=== PATIENT | female | born 1990 | race Caucasian/White ===

== ENCOUNTER 2020-10-01 18:59 | Inpatient (IN) | payer BC ==
--- NOTE | 2020-10-01 19:41 | EDM.PDOC ---
ED HPI GENERAL MEDICAL PROBLEM - General Chief Complaint: Lower Extremity Injury/Pain Stated Complaint: BLOOD CLOT IN LEFT LEG Time Seen by Provider: 10/01/20 19:15 Source of Information: Reports: Patient History Limitations: Reports: No Limitations - History of Present Illness INITIAL COMMENTS - FREE TEXT/NARRATIVE: ED with swelling left lower leg. No injury. Was seen at [facility] late afternoon, sent here to be seen in ED and have US. No records sent by facility. Patient reports negative hx or family hx for clotting issues. On OCP.. Hx PCOS. Smoker. Works from home sitting approximately 9.5 hours perday. Left Lower Leg Pain Score (Numeric/FACES): 10 - Related Data Allergies Allergy/AdvReac Type Severity Reaction Status Date / Time No Known Allergies Allergy Verified 10/01/20 19:16 Home Meds: Home Meds Ethinyl Estradiol/Drospirenone [Yudy 28 Tablet] 1 tab PO DAILY 10/02/20 [History] metFORMIN [Glucophage] 500 mg PO BIDMEALS 10/02/20 [History] Past Medical History - Past Health History Medical/Surgical History: Denies Medical/Surgical History Social & Family History - Tobacco Use Tobacco Use Status *Q: Current Every Day Tobacco User Years of Tobacco use: 10 Packs/Tins Daily: 1 Used Tobacco, but Quit: No - Caffeine Use Caffeine Use: Reports: Coffee, Energy Drinks, Soda, Tea - Recreational Drug Use Recreational Drug Use: No Review of Systems - Review of Systems Review Of Systems: Comprehensive ROS is negative, except as noted in HPI. ED EXAM, GENERAL - Physical Exam Exam: See Below Exam Limited By: No Limitations General Appearance: Alert, Mild Distress Eye Exam: Bilateral Eye: PERRL Ears: Normal External Exam Nose: Normal Inspection Throat/Mouth: Normal Voice Head: Atraumatic, Normocephalic Neck: Normal Inspection Respiratory/Chest: No Respiratory Distress, Lungs Clear, Normal Breath Sounds Cardiovascular: Regular Rate, Rhythm, No Murmur, No Rub GI/Abdominal: Normal Bowel Sounds Back Exam: Normal Inspection Extremities: Rbooke's Sign (left), Leg Pain (left posterior upper calf pain with swelling), Other (right ankle18.5 cm right calf 42cm left ankle20.5 cm, left calf 44cm). No: Increased Warmth, Mottled, Pallor, Redness Neurological: Alert, Oriented, Normal Cognition Psychiatric: Normal Affect, Normal Mood Skin Exam: Warm, Dry, Intact, Normal Color Course - Vital Signs Last Recorded V/S: Last Vital Signs Temp 98.5 F 10/01/20 22:46 Pulse 101 H 10/01/20 22:46 Resp 16 10/01/20 22:46 BP 129/63 10/01/20 22:46 Pulse Ox 99 10/01/20 22:46 - Orders/Labs/Meds Orders: Medication Orders Acetaminophen (Acetaminophen 325 Mg Tab) 650 mg PO Q4H PRN PRN Reason: Pain (Mild 1-3)/fever Apixaban (Apixaban 5 Mg Tab) 10 mg PO BID MEHUL Last Admin: 10/01/20 23:16 Dose: 10 mg Documented by: ERIC Miscellaneous Information (Remove Nicotine 14 Mg Patch) 1 ea TRDERM DAILY [facility] Nicotine (Nicotine 14 Mg/24 Hr Patch) 14 mg TRDERM DAILY [facility] Labs: Laboratory Tests 10/01/20 10/01/20 10/01/20 Range/Units 19:30 19:30 19:30 WBC 11.0 H (5.0-10.0) 10^3/uL RBC 4.01 L (4.2-5.4) 10^6/uL Hgb 12.0 (12.0-16.0) g/dL Hct 35.9 L (37.0-47.0) % MCV 89.5 (80-100) fL MCH 29.9 (27.0-34.0) pg MCHC 33.4 (33.0-35.0) g/dL Plt Count 172 (150-450) 10^3/uL Neut % (Auto) 67.5 (42.2-75.2) % Lymph % (Auto) 23.6 (20.5-50.1) % Branch % (Auto) 4.7 (2-8) % Eos % (Auto) 3.9 H (1.0-3.0) % Baso % (Auto) 0.3 (0.0-1.0) % PT 9.8 (9.0-12.0) SEC INR 1.0 (0.9-1.2) D-Dimer, Quantitative 2890 H (0-400) ng/mL Sodium 138 (136-145) mmol/L Potassium 3.9 (3.5-5.1) mmol/L Chloride 103 (98-107) mmol/L Carbon Dioxide 24 (21-32) mmol/L Anion Gap 14.9 H (7-13) mEq/L BUN 9 (7-18) mg/dL Creatinine 0.87 (0.55-1.02) mg/dL Est Cr Clr Drug Dosing 83.13 mL/min Estimated GFR (MDRD) > 60 BUN/Creatinine Ratio 10.3 (No establ ref range) Glucose 99 (70-99) mg/dL Calcium 8.7 (8.5-10.1) mg/dL Total Bilirubin 0.2 (0.2-1.0) mg/dL AST 12 L (15-37) U/L ALT 24 (14-59) U/L Alkaline Phosphatase 82 (46-116) U/L Total Protein 7.5 (6.4-8.2) g/dL Albumin 2.9 L (3.4-5.0) g/dL Globulin 4.6 Albumin/Globulin Ratio 0.63 HCG, Qual Negative SARS-CoV-2 RNA (FRIDA) (NEGATIVE) 10/01/20 Range/Units 20:20 WBC (5.0-10.0) 10^3/uL RBC (4.2-5.4) 10^6/uL Hgb (12.0-16.0) g/dL Hct (37.0-47.0) % MCV (80-100) fL MCH (27.0-34.0) pg MCHC (33.0-35.0) g/dL Plt Count (150-450) 10^3/uL Neut % (Auto) (42.2-75.2) % Lymph % (Auto) (20.5-50.1) % Branch % (Auto) (2-8) % Eos % (Auto) (1.0-3.0) % Baso % (Auto) (0.0-1.0) % PT (9.0-12.0) SEC INR (0.9-1.2) D-Dimer, Quantitative (0-400) ng/mL Sodium (136-145) mmol/L Potassium (3.5-5.1) mmol/L Chloride (98-107) mmol/L Carbon Dioxide (21-32) mmol/L Anion Gap (7-13) mEq/L BUN (7-18) mg/dL Creatinine (0.55-1.02) mg/dL Est Cr Clr Drug Dosing mL/min Estimated GFR (MDRD) BUN/Creatinine Ratio (No establ ref range) Glucose (70-99) mg/dL Calcium (8.5-10.1) mg/dL Total Bilirubin (0.2-1.0) mg/dL AST (15-37) U/L ALT (14-59) U/L Alkaline Phosphatase (46-116) U/L Total Protein (6.4-8.2) g/dL Albumin (3.4-5.0) g/dL Globulin Albumin/Globulin Ratio HCG, Qual SARS-CoV-2 RNA (FRIDA) Negative (NEGATIVE) Meds: Medications Generic Name Dose Route Start Last Admin Trade Name Freq PRN Reason Stop Dose Admin Acetaminophen 650 mg 10/01/20 22:46 Acetaminophen 325 Mg Tab PO Q4H PRN Pain (Mild 1-3)/fever Apixaban 10 mg 10/01/20 23:00 10/01/20 23:16 Apixaban 5 Mg Tab PO 10 mg BID MEHUL Administration Miscellaneous Information 1 ea 10/03/20 09:00 Remove Nicotine 14 Mg Patch TRDERM DAILY [facility] Nicotine 14 mg 10/02/20 09:00 Nicotine 14 Mg/24 Hr Patch TRDERM DAILY MEH[facility] Discontinued Medications Generic Name Dose Route Start Last Admin Trade Name Freq PRN Reason Stop Dose Admin Iopamidol 100 ml 10/01/20 20:12 10/01/20 20:52 Iopamidol 755 Mg/Ml 100 Ml Bottle IVPUSH 10/01/20 20:13 71 ml ONETIME ONE Administration - Re-Assessments/Exams Free Text/Narrative Re-Assessment/Exam: 10/02/20 02:[address] Carlos , will admit acute care Departure - Departure Time of Disposition: 22:00 Disposition: Admitted As Inpatient 68 Condition: Good Clinical Impression: DVT of lower extremity (deep venous thrombosis) Qualifiers: Affected thrombotic vein of extremity: femoral Chronicity: acute Laterality: left Qualified Code(s): I82.412 - Acute embolism and thrombosis of left femoral vein - Discharge Information *PRESCRIPTION DRUG MONITORING PROGRAM REVIEWED*: No *COPY OF PRESCRIPTION DRUG MONITORING REPORT IN PATIENT MILVIA: No Sepsis Event Note (ED) - Evaluation Sepsis Screening Result: No Definite Risk - Focused Exam Vital Signs: Vital Signs Temp Pulse Resp BP Pulse Ox 10/01/20 19:12 98.7 F 109 H 18 140/90 100
[2020-10-01 19:56] LABS: ANION GAP 14.9 mEq/L (7-13); CHLORIDE,CL 103 mmol/L (98-107); SODIUM,NA 138 mmol/L (136-145)
[2020-10-01] MEDS ORDERED: Iopamidol 755 Mg/ML 100 ML Bottle IVPUSH ONE (20:12)
--- NOTE | 2020-10-01 20:43 | US ---
PROCEDURE INFORMATION: Exam: US Duplex Left Lower Extremity Veins, Limited Exam date and time: 10/01/2020 7:33 PM Age: 30 years old Clinical indication: Pain; Leg, lower; Left; Additional info: Left calf pain swelling TECHNIQUE: Imaging protocol: Real-time Duplex ultrasound of the Left Lower Extremity with 2-D lange scale, color Doppler flow and spectral waveform analysis with image documentation. Limited exam focused on the left lower extremity veins. Total images: 30 COMPARISON: No relevant prior studies available. FINDINGS: Left deep veins: There is long segment deep venous thrombosis extending from the visualized portion of the left common femoral vein throughout the left superficial femoral vein, popliteal vein and into the below the knee deep veins. Abnormal spectral waveforms. Left superficial veins: Unremarkable. Saphenofemoral junction is patent without thrombus. Soft tissues: Unremarkable. IMPRESSION: Long segment DVT throughout the left lower extremity deep veins. Thrombus extends from the visualized portion of the left common femoral vein into the below the knee calf veins.
--- NOTE | 2020-10-01 21:13 | CT ---
PROCEDURE INFORMATION: Exam: CT Chest With Contrast; Diagnostic Exam date and time: 10/01/2020 8:37 PM Age: 30 years old Clinical indication: Other: Dvt, d-dimer 2890; Additional info: Dvt, ddimer 2800 TECHNIQUE: Imaging protocol: Diagnostic computed tomography of the chest with contrast. Total images: 371 Radiation optimization: All CT scans at this facility use at least one of these dose optimization techniques: automated exposure control; mA and/or kV adjustment per patient size (includes targeted exams where dose is matched to clinical indication); or iterative reconstruction. Contrast material: ISOVUE 370; Contrast volume: 71 ml; Contrast route: INTRAVENOUS (IV); COMPARISON: No relevant prior studies available. FINDINGS: Lungs: Patchy nodular opacity at the lateral right lung base probably inflammatory/atelectatic. Pleural spaces: Unremarkable. No pneumothorax. No pleural effusion. Heart: No definite evidence for right heart strain with RV to LV ratio less than 1. Pulmonary arteries: Although the examination is not tailored for the pulmonary arteries. There is suggestion of possible small thrombus within a right segmental lower lobe pulmonary branch as seen best on image 51-series 4. Possible tiny thrombus within a left upper lobe branch. Aorta: Unremarkable. No aortic aneurysm. Lymph nodes: Unremarkable. No enlarged lymph nodes. Bones/joints: Unremarkable. No acute fracture. Soft tissues: Unremarkable. IMPRESSION: 1. Although this examination was not tailored for the pulmonary arteries, there is suggestion of small thrombus/acute pulmonary embolus within a right lower lobe segmental arterial branch. Possible thrombus left upper lobe branch. No right heart strain. May consider dedicated CTA of chest to better characterize the pulmonary arteries. 2. See above for other details.
[2020-10-01] MEDS ORDERED: Acetaminophen 325 MG Tab PO PRN (22:46)
--- NOTE | 2020-10-01 23:09 | PCM.HP ---
H&P History of Present Illness - General Date of Service: 10/01/20 Admit Problem/Dx: Admission Diagnosis/Problem Admission Diagnosis/Problem DVT, Deep venous thrombosis of lower extremity - History of Present Illness Initial Comments - Free Text/Narative: 30F w/ pmh SLE, PCOS, on oral contraceptives for related hirsutism, smoker p/w LLE pain and swelling. 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 She noticed pain and swelling in left calf one day ago. She was seen in clinic and directed to the ED for concern for DVT. ER evaluation reveals LLE DVT up to the common femoral vein and CT chest reveals possible two small PEs in RLL and TOI. Pt denies any cardiopulmonary symptoms. Denies any bleeding. Denies family hx clotting disorders or sudden . Left Lower Leg Pain Score (Numeric/FACES): 10 - Related Data Allergies/Adverse Reactions: Allergies Allergy/AdvReac Type Severity Reaction Status Date / Time No Known Allergies Allergy Verified 10/01/20 19:16 Home Medications: Home Meds . [Unable to Verify Home Med List] 10/01/20 [History] Past Medical History - Past Health History Medical/Surgical History: Denies Medical/Surgical History Social & Family History - Tobacco Use Tobacco Use Status *Q: Current Every Day Tobacco User Years of Tobacco use: 10 Packs/Tins Daily: 1 Used Tobacco, but Quit: No - Caffeine Use Caffeine Use: Reports: Coffee, Energy Drinks, Soda, Tea - Recreational Drug Use Recreational Drug Use: No H&P Review of Systems - Review of Systems: Review Of Systems: See Below General: Denies: Fever, Chills, Malaise, Weakness HEENT: Denies: Headaches Pulmonary: Denies: Shortness of Breath, Pleuritic Chest Pain, Cough, Hemoptysis Cardiovascular: Reports: Edema (LLE). Denies: Chest Pain, Palpitations Gastrointestinal: Denies: Abdominal Pain Genitourinary: Denies: Dysuria Musculoskeletal: Reports: Joint Swelling (on/off many joints particularly hands and knees) Skin: Denies: Jaundice Psychiatric: Denies: Confusion, Depression, Anxiety Neurological: Denies: Dizziness Hematologic/Lymphatic: Reports: Easy Bruising. Denies: Easy Bleeding Exam - Exam Exam: See Below - Vital Signs Vital Signs: Last Vital Signs Temp 98.7 F 10/01/20 19:12 Pulse 109 H 10/01/20 19:12 Resp 18 10/01/20 19:12 BP 140/90 10/01/20 19:12 Pulse Ox 100 10/01/20 19:12 Weight: 194 lb 12.8 oz - Exam Quality Assessment: No: Supplemental Oxygen General: Alert, Oriented HEENT: Conjunctiva Clear Neck: Supple Lungs: Clear to Auscultation, Normal Respiratory Effort Cardiovascular: Regular Rate, Regular Rhythm GI/Abdominal Exam: Normal Bowel Sounds, Soft, Non-Tender, No Distention Back Exam: Normal Inspection Extremities: Other (LLE diffusely swollen, mildly TTP left calf, RUE in biceps noticably bigger diameter than LUE but no TTP or erythema) Skin: Warm, Dry, Intact Neurological: Cranial Nerves Intact Neuro Extensive - Mental Status: Alert, Oriented x3 Neuro Extensive - Motor, Sensory, Reflexes: No: Tremor Psychiatric: Alert, Normal Affect, Normal Mood - Patient Data Lab Results Last 24 hrs: Laboratory Results - last 24 hr 10/01/20 10/01/20 10/01/20 Range/Units 19:30 19:30 19:30 WBC 11.0 H (5.0-10.0) 10^3/uL RBC 4.01 L (4.2-5.4) 10^6/uL Hgb 12.0 (12.0-16.0) g/dL Hct 35.9 L (37.0-47.0) % MCV 89.5 (80-100) fL MCH 29.9 (27.0-34.0) pg MCHC 33.4 (33.0-35.0) g/dL Plt Count 172 (150-450) 10^3/uL Neut % (Auto) 67.5 (42.2-75.2) % Lymph % (Auto) 23.6 (20.5-50.1) % [place]ke % (Auto) 4.7 (2-8) % Eos % (Auto) 3.9 H (1.0-3.0) % Baso % (Auto) 0.3 (0.0-1.0) % PT 9.8 (9.0-12.0) SEC INR 1.0 (0.9-1.2) D-Dimer, Quantitative 2890 H (0-400) ng/mL Sodium 138 (136-145) mmol/L Potassium 3.9 (3.5-5.1) mmol/L Chloride 103 (98-107) mmol/L Carbon Dioxide 24 (21-32) mmol/L Anion Gap 14.9 H (7-13) mEq/L BUN 9 (7-18) mg/dL Creatinine 0.87 (0.55-1.02) mg/dL Est Cr Clr Drug Dosing 83.13 mL/min Estimated GFR (MDRD) > 60 BUN/Creatinine Ratio 10.3 (No establ ref range) Glucose 99 (70-99) mg/dL Calcium 8.7 (8.5-10.1) mg/dL Total Bilirubin 0.2 (0.2-1.0) mg/dL AST 12 L (15-37) U/L ALT 24 (14-59) U/L Alkaline Phosphatase 82 (46-116) U/L Total Protein 7.5 (6.4-8.2) g/dL Albumin 2.9 L (3.4-5.0) g/dL Globulin 4.6 Albumin/Globulin Ratio 0.63 HCG, Qual Negative SARS-CoV-2 RNA (FRIDA) (NEGATIVE) 10/01/20 Range/Units 20:20 WBC (5.0-10.0) 10^3/uL RBC (4.2-5.4) 10^6/uL Hgb (12.0-16.0) g/dL Hct (37.0-47.0) % MCV (80-100) fL MCH (27.0-34.0) pg MCHC (33.0-35.0) g/dL Plt Count (150-450) 10^3/uL Neut % (Auto) (42.2-75.2) % Lymph % (Auto) (20.5-50.1) % [place]ke % (Auto) (2-8) % Eos % (Auto) (1.0-3.0) % Baso % (Auto) (0.0-1.0) % PT (9.0-12.0) SEC INR (0.9-1.2) D-Dimer, Quantitative (0-400) ng/mL Sodium (136-145) mmol/L Potassium (3.5-5.1) mmol/L Chloride (98-107) mmol/L Carbon Dioxide (21-32) mmol/L Anion Gap (7-13) mEq/L BUN (7-18) mg/dL Creatinine (0.55-1.02) mg/dL Est Cr Clr Drug Dosing mL/min Estimated GFR (MDRD) BUN/Creatinine Ratio (No establ ref range) Glucose (70-99) mg/dL Calcium (8.5-10.1) mg/dL Total Bilirubin (0.2-1.0) mg/dL AST (15-37) U/L ALT (14-59) U/L Alkaline Phosphatase (46-116) U/L Total Protein (6.4-8.2) g/dL Albumin (3.4-5.0) g/dL Globulin Albumin/Globulin Ratio HCG, Qual SARS-CoV-2 RNA (FRIDA) Negative (NEGATIVE) Result Diagrams: 10/01/20 19:30 10/01/20 19:30 Problem List Initiated/Reviewed/Updated: Yes Orders Last 24hrs: Active Orders 24 hr Category Date Time Status Admission Diagnosis [ADT] Stat ADT 10/01/20 21:16 Ordered Admission Status [Patient Status] [ADT] Routine ADT 10/01/20 21:16 Active Patient Status [ADT] Routine ADT 10/01/20 22:46 Ordered Cardiac Monitoring [RC] 08,20 Care 10/01/20 21:16 Active Cardiac Monitoring [RC] CONTINUOUS Care 10/01/20 22:47 Ordered Communication Order [RC] ROUTINE Care 10/01/20 23:03 Ordered Oxygen Therapy [RC] PRN Care 10/01/20 22:46 Ordered Up ad Nika [RC] ASDIRECTED Care 10/01/20 22:46 Ordered VTE/DVT Education [RC] PER UNIT ROUTINE Care 10/01/20 22:46 Ordered Vital Signs [RC] Q4H Care 10/01/20 22:46 Ordered Regular Diet [DIET] Diet 10/02/20 Breakfast Ordered Echo Comp wo Cont [US] Routine Exams 10/01/20 22:46 Ordered Venous Doppler Upr Ext Rt [US] Routine Exams 10/01/20 22:46 Ordered ANTICARDIOLIPIN AB, IGG, QN [REF] AM Lab 10/02/20 05:11 Ordered ANTITHROMBIN ACTIVITY [REF] AM Lab 10/02/20 05:11 Ordered LUPUS ANTICOAGULANT PANEL [REF] AM Lab 10/02/20 05:11 Ordered MISC TEST AM Lab 10/02/20 05:11 Ordered MISC TEST Routine Lab 10/02/20 05:30 Ordered MISC TEST Routine Lab 10/02/20 05:31 Ordered PROTEIN C-FUNCTIONAL [REF] AM Lab 10/02/20 05:11 Ordered PROTEIN S-FUNCTIONAL [REF] AM Lab 10/02/20 05:11 Ordered Acetaminophen [TylenoL] Med 10/01/20 22:46 Ordered 650 mg PO Q4H PRN Apixaban [Eliquis] Med 10/01/20 23:00 Ordered 10 mg PO BID Nicotine [Habitrol] Med 10/02/20 09:00 Ordered 14 mg TRDERM DAILY Remove Patch Med 10/03/20 09:00 Active 1 ea TRDERM DAILY Resuscitation Status Routine Resus Stat 10/01/20 22:46 Ordered Medication Orders Acetaminophen (Acetaminophen 325 Mg Tab) 650 mg PO Q4H PRN PRN Reason: Pain (Mild 1-3)/fever Apixaban (Apixaban 5 Mg Tab) 10 mg PO BID MEHUL Miscellaneous Information (Remove Nicotine 14 Mg Patch) 1 ea TRDERM DAILY [facility] Nicotine (Nicotine 14 Mg/24 Hr Patch) 14 mg TRDERM DAILY [facility] Assessment/Plan Comment:: #acute LLE DVT / acute PE - appears provoked by sedentary job, smoking and OCP use - given young age will test for hypercoagulable disorders including APS and anticardiolipin given SLE hx - check RUE doppler given asymetry and echo - risks/benefits/alternatives of anticoagulation discussed - med choices discussed >>> pt chose eliquis #SLE - self d/c all meds #PCOS - hold OCPs PPX - on a/c
[2020-10-01] MEDS: Apixaban 5 MG Tab PO SCH (23:16)
[2020-10-02] MEDS ORDERED: Nicotine 14 MG/24 Hr Patch TRDERM SCH (09:00)
[2020-10-02] MEDS: Apixaban 5 MG Tab PO SCH (09:05)
--- NOTE | 2020-10-02 13:18 | US ---
EXAMINATION: Venous Doppler Upr Ext Rt SEX: Female AGE: 30 years CLINICAL HISTORY: 30-year-old hospitalized female with clinical history left lower extremity DVT and pulmonary embolism (D dimer 2890) who presents now with right arm swelling. Interpretation: Negative exam. No current sonographic evidence deep vein thrombosis right upper extremity. Specifically, no sign of intraluminal echogenic thrombus identified in the right subclavian, right axillary, right brachial and basilic veins. Cephalic vein also patent. No subcutaneous edema or hematoma.
--- NOTE | 2020-10-02 18:57 | PCM.DCSUM1 ---
Discharge Summary - Hospital Course Free Text/Narrative:: 30F w/ pmh SLE, PCOS, on oral contraceptives for related hirsutism, smoker p/w LLE pain and swelling. 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 She noticed pain and swelling in left calf one day ago. She was seen in clinic and directed to the ED for concern for DVT. ER evaluation reveals LLE DVT up to the common femoral vein and CT chest reveals possible two small PEs in RLL and TOI. Pt denies any cardiopulmonary symptoms. Denies any bleeding. Denies family hx clotting disorders or sudden . Risks, benefits and alternatives to anticoagulation was discussed. PT chose to start on eliquis. Hypercoagulable work up was sent due to her young age. She was counseled on smoking cessation and stopping OCPs. - Discharge Data Discharge Date: 10/02/20 Discharge Disposition: Home, Self-Care 01 Condition: Good - Referral to Home Health Primary Care Physician: PCP None - Discharge Plan *PRESCRIPTION DRUG MONITORING PROGRAM REVIEWED*: No *COPY OF PRESCRIPTION DRUG MONITORING REPORT IN PATIENT MILVIA: No Prescriptions/Med Rec: Apixaban [Eliquis] 10 mg PO BID #72 tablet Home Medications: Home Meds Apixaban [Eliquis] 10 mg PO BID #72 tablet 10/02/20 [Rx] metFORMIN [Glucophage] 500 mg PO BIDMEALS 10/02/20 [History] Patient Handouts: Apixaban oral tablets, Venous Thromboembolism Prevention Referrals: Lesly Reese [facility] [Ordering Only Provider] - - Discharge Summary/Plan Comment DC Time >30 min.: Yes (35 min) - Patient Data Vitals - Most Recent: Last Vital Signs Temp 98.3 F 10/02/20 11:36 Pulse 75 10/02/20 11:36 Resp 16 10/02/20 11:36 BP 110/56 L 10/02/20 11:36 Pulse Ox 98 10/02/20 11:36 Weight - Most Recent: 194 lb 3.2 oz I&O - Last 24 hours: Intake & Output 10/02/20 10/02/20 10/02/20 06:59 14:59 22:59 Intake Total 680 Balance 680 Lab Results - Last 24 hrs: Laboratory Results - last 24 hr 05/19/21 05/19/21 05/19/21 Range/Units 19:30 19:30 19:30 WBC 11.0 H (5.0-10.0) 10^3/uL RBC 4.01 L (4.2-5.4) 10^6/uL Hgb 12.0 (12.0-16.0) g/dL Hct 35.9 L (37.0-47.0) % MCV 89.5 (80-100) fL MCH 29.9 (27.0-34.0) pg MCHC 33.4 (33.0-35.0) g/dL Plt Count 172 (150-450) 10^3/uL Neut % (Auto) 67.5 (42.2-75.2) % Lymph % (Auto) 23.6 (20.5-50.1) % [place] % (Auto) 4.7 (2-8) % Eos % (Auto) 3.9 H (1.0-3.0) % Baso % (Auto) 0.3 (0.0-1.0) % ESR (0-20) mm/hr PT 9.8 (9.0-12.0) SEC INR 1.0 (0.9-1.2) D-Dimer, Quantitative 2890 H (0-400) ng/mL Sodium 138 (136-145) mmol/L Potassium 3.9 (3.5-5.1) mmol/L Chloride 103 (98-107) mmol/L Carbon Dioxide 24 (21-32) mmol/L Anion Gap 14.9 H (7-13) mEq/L BUN 9 (7-18) mg/dL Creatinine 0.87 (0.55-1.02) mg/dL Est Cr Clr Drug Dosing 83.13 mL/min Estimated GFR (MDRD) > 60 BUN/Creatinine Ratio 10.3 (No establ ref range) Glucose 99 (70-99) mg/dL Calcium 8.7 (8.5-10.1) mg/dL Total Bilirubin 0.2 (0.2-1.0) mg/dL AST 12 L (15-37) U/L ALT 24 (14-59) U/L Alkaline Phosphatase 82 (46-116) U/L Total Protein 7.5 (6.4-8.2) g/dL Albumin 2.9 L (3.4-5.0) g/dL Globulin 4.6 Albumin/Globulin Ratio 0.63 HCG, Qual Negative SARS-CoV-2 RNA (FRIDA) (NEGATIVE) 10/01/20 10/02/20 Range/Units 20:20 06:05 WBC (5.0-10.0) 10^3/uL RBC (4.2-5.4) 10^6/uL Hgb (12.0-16.0) g/dL Hct (37.0-47.0) % MCV (80-100) fL MCH (27.0-34.0) pg MCHC (33.0-35.0) g/dL Plt Count (150-450) 10^3/uL Neut % (Auto) (42.2-75.2) % Lymph % (Auto) (20.5-50.1) % [place] % (Auto) (2-8) % Eos % (Auto) (1.0-3.0) % Baso % (Auto) (0.0-1.0) % ESR 67 H (0-20) mm/hr PT (9.0-12.0) SEC INR (0.9-1.2) D-Dimer, Quantitative (0-400) ng/mL Sodium (136-145) mmol/L Potassium (3.5-5.1) mmol/L Chloride (98-107) mmol/L Carbon Dioxide (21-32) mmol/L Anion Gap (7-13) mEq/L BUN (7-18) mg/dL Creatinine (0.55-1.02) mg/dL Est Cr Clr Drug Dosing mL/min Estimated GFR (MDRD) BUN/Creatinine Ratio (No establ ref range) Glucose (70-99) mg/dL Calcium (8.5-10.1) mg/dL Total Bilirubin (0.2-1.0) mg/dL AST (15-37) U/L ALT (14-59) U/L Alkaline Phosphatase (46-116) U/L Total Protein (6.4-8.2) g/dL Albumin (3.4-5.0) g/dL Globulin Albumin/Globulin Ratio HCG, Qual SARS-CoV-2 RNA (FRIDA) Negative (NEGATIVE) Med Orders - Current: Current Medications Discontinued Medications Acetaminophen (Acetaminophen 325 Mg Tab) 650 mg PO Q4H PRN PRN Reason: Pain (Mild 1-3)/fever Apixaban (Apixaban 5 Mg Tab) 10 mg PO BID [facility] Last Admin: 10/02/20 09:05 Dose: 10 mg Documented by: Iopamidol (Iopamidol 755 Mg/Ml 100 Ml Bottle) 100 ml IVPUSH ONETIME ONE Stop: 10/01/20 20:13 Last Admin: 10/01/20 20:52 Dose: 71 ml Documented by: Miscellaneous Information (Remove Nicotine 14 Mg Patch) 1 ea TRDERM DAILY [facility] Nicotine (Nicotine 14 Mg/24 Hr Patch) 14 mg TRDERM DAILY [facility] Last Admin: 10/02/20 09:07 Dose: Not Given Documented by:
== END 2020-10-02 13:35 | disposition home or self-care (01) | DRG 197 ==
LOC: DL.ED 18:59 → DL.MS 21:16
PROVIDERS: ADMIT Internal Medicine; ATTEND Internal Medicine
DX: I82.412 Acute embolism and thrombosis of left femoral vein (principal); I26.99 Other pulmonary embolism without acute cor pulmonale; M32.9 Systemic lupus erythematosus, unspecified; E28.2 Polycystic ovarian syndrome; F17.200 Nicotine dependence, unspecified, uncomplicated; Z20.822 Contact with and (suspected) exposure to COVID-19
CPT/HCPCS: 36415; 71260; 80053; 81241; 84703; 85025; 85300; 85303; 85306; 85379; 85610; 85613; 85651; 85730; 86146; 86147; 93306; 93971; 99222; 99239; 99284; 99284-25; A9270-GY; Q9967; U0002